=== PATIENT | male | born 1985 | race Asian ===

== ENCOUNTER → 2020-02-08 | Outpatient (CLI) | payer OTHER ==
--- NOTE | 2020-02-08 10:44 | ER RDC ASSESSMENT REPORT ---
Intake - In the Last 14 days Have you traveled outside [place]?: Yes Have you been in close contact with someone CONFIRMED: Yes Worked in Healthcare?: No - Symptoms Subjective Fever(Humphrey feverish): No Chills: No Muscule Aches: No Runny Nose: No Sore Throat: No Cough (New or worsening chronic cough): No Shortness of breath: No Nausea or Vomiting: No Headache: No Abdominal Pain: No Diarrhea(3 or more loose stools in last 24 hours): No - Do you have any of the following Chronic lung disease: Asthma or emphysema or COPD: No Cystic Fibrosis: No Diabetes: No High Blood Pressure: No Cardiovascular Disease: No Chronic Kidney Disease: No Chronic Liver Disease: No Chronic blood disorder like Sickle Cell Disease: No Weak immune system due to disease or medication: No Neurologic condition that limits movement: No Developmental delay - Moderate to Severe: No Recent (within past 2 weeks) or current : No Morbid Obesity (>100 pounds over ideal weight): No - Objective Temperature: 98.7 F Pulse Rate: 75 Respiratory Rate: 18 Blood Pressure: 149/99 O2 Sat by Pulse Oximetry: 96 Objective: Patient is a well-appearing 34-year-old male, who presents today for COVID-19 screening. Disposition: Home; Selfcare General - General Stated Complaint: COVID-19 screening Mode of Arrival: Ambulatory Information source: Patient Notes: The patient was evaluated during the global COVID-19 pandemic. That diagnosis was suspected/considered upon initial presentation. Their evaluation, treatment, and testing was consistent with current guidelines for patients who present with complaints or symptoms that may be related to COVID-19. Patient reports having close contact exposure to a COVID-19 lab confirmed pos itive individual. 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 HEAD: Atraumatic, normocephalic. EYES: sclera anicteric, conjunctiva are normal. ENT: nares patent. Moist mucous membranes. NECK: Normal range of motion, supple without lymphadenopathy. LUNGS: CTAB and equal. No wheezes rales or rhonchi. HEART: Regular rate and rhythm without murmurs. EXTREMITIES: Normal range of motion, no pitting edema. No cyanosis. BACK: No midline or CVA tenderness. NEUROLOGICAL: Cranial nerves grossly intact. Normal speech. Normal gait. PSYCH: Normal mood, normal affect. SKIN: Warm, Dry, normal color and turgor, no obvious lesions or rash noted. Diagnostic Results Laboratory Results: Patient advised at this time they are considered a Person Under Investigation (PUI) for the COVID-19 Coronavirus. They have been made aware it is currently taking 5-7 days to receive their results, and [facility] will call to advise them of a POSITIVE result, and an [facility] team primary care physician will call to advise of a NEGATIVE result. Patient Education/Counseling Counseling/Education: Patient presents with upper respiratory symptoms worrisome for possible COVID- 19. Patient does not have symptoms worrisome as an emergency such as difficulty breathing, shortness of breath, chest pain, pressure, confusion or cyanosis. Patient appears suitable for discharge. Patient's vital signs are stable and patient is nontoxic in appearance. Good return precautions have been discussed with patient, patient verbalized understanding and is agreeable with discharge plan of care at this time. Patient provided COVID-19 discharge instructions to include: As a person under investigation for COVID-19, the [place] department of Health and Human Services, division of public health advises you to adhere to the following guidance until your test results are reported to you. If your test result is positive, you will receive additional information from your provider and your local health department at that time. Remain at home until you are cleared by the health provider or public health authorities. Keep a log of visitors to your home, notify any visitors to your home of your isolation status. If you plan to move to a new address or leave the county, notify the local health department in your County. Call your doctor or seek care if you have an urgent medical need. Before seeking medical care, call ahead to get instructions from the provider before arriving at the medical office clinic or hospital. Notify them that you are being tested for the virus that causes COVID-19 so that arrangements can be made, as necessary, to prevent transmission to others in the healthcare setting. Next, notify the local health department in your county. If a medical emergency arises and you need to call 911, inform dispatch and the first responders that you are being tested for the virus that causes COVID-19. Next, notify the local health department in your county. Guidance for worsening S/SX: For worsening symptoms, patient has been advised to contact their Primary Care Provider, or go to the nearest Emergency Department. RDC Discharge - Discharge Clinical Impression: COVID-19 Screening URI (upper respiratory infection) Qualifiers: URI type: unspecified URI Qualified Code(s): J06.9 - Acute upper respiratory infection, unspecified Condition: Stable Disposition: Home; Selfcare
[2020-02-08 11:10] VITALS: BP 149/99
== END ==
LOC: RDC 10:06
PROVIDERS: ATTEND Nurse Practitioner Family
DX: J06.9 Acute upper respiratory infection, unspecified (principal); Z20.828 Contact with and (suspected) exposure to other viral communicable diseases; Z87.891 Personal history of nicotine dependence
CPT/HCPCS: 87635; C9803; 99201; 99211

== ENCOUNTER → 2020-05-21 | Outpatient (CLI) | payer OTHER ==
--- NOTE | 2020-05-22 13:04 | RADIOLOGY REPORT (SQ) ---
EXAM DESCRIPTION: NM THYROID SCAN AND UPTAKE IMAGES COMPLETED DATE/TIME: 05/22/2020 9:49 am REASON FOR STUDY: LOW TSH E03.9 HYPOTHYROIDISM, UNSPECIFIED COMPARISON: None. RADIONUCLIDE AND DOSE: 300 microcuries I-123. The route of agent administration: Oral ADDITIONAL DRUGS AND DOSES: None. TECHNIQUE: Iodine uptake was measured at 4 and 24 hours. Images of the neck were acquired. LIMITATIONS: None. FINDINGS: 4 HOUR UPTAKE RADIO-IODINE: 22.81%. Normal Range of 5-20% [facility] Normal Range of 5-15% [facility] Normal Range of 5-15% [facility] 24 HOUR UPTAKE RADIO-IODINE: 40.78%. Normal Range of 7-35% [facility] Normal Range of 8-35% [facility] Normal Range of 15-30% [facility] SCAN: Homogeneous uptake of the radionuclide throughout both lobes of the gland and isthmus without a reas of increased or decreased activity. Normal size. OTHER: No other significant finding. IMPRESSION: Normal radionuclide scan of the thyroid gland. Mildly increased uptake. TECHNICAL DOCUMENTATION: JOB ID: [id number] Private Company- All Rights Reserved Reading location - IP/workstation name: [email or web address]
== END ==
LOC: RAD 09:12
PROVIDERS: ATTEND Clinical Nurse Specialist Adult Health
DX: E03.9 Hypothyroidism, unspecified (principal)
CPT/HCPCS: 78014; A9516

== ENCOUNTER → 2020-06-26 | Outpatient (CLI) | payer OTHER ==
[~2020-06-26] MED LIST: COVID-19 VACCINE (PFIZER)/PF 30 MCG/0.3 ML VIAL IM ONE; EPINEPHRINE INJ/PF 1 MG/1 ML AMPULE IM PRN
== END ==
LOC: EMPHEALTH 15:35
PROVIDERS: ATTEND Internal Medicine
DX: Z23 Encounter for immunization (principal)
CPT/HCPCS: 91300